=== PATIENT | male | born 1970 | race Caucasian/White ===

== ENCOUNTER 2020-07-30 12:18 | Emergency (ER) | payer MEDICAID, OTHER ==
[~2020-07-30] VITALS: Ht 170.2 cm; Wt 77.6 kg
[~2020-07-30 12:18] MED LIST: no meds
[2020-07-30 12:25] VITALS: BP_SYST 117
[2020-07-30 13:44] VITALS: BP_SYST 119
== END 2020-07-30 13:44 | disposition home or self-care (01) ==
LOC: SED 12:18
DX: S22.008A Other fracture of unspecified thoracic vertebra, initial encounter for closed fracture (principal); Z88.0 Allergy status to penicillin; Z88.2 Allergy status to sulfonamides; W10.8XXA Fall (on) (from) other stairs and steps, initial encounter; Y93.89 Activity, other specified; Y92.89 Other specified places as the place of occurrence of the external cause; Y99.8 Other external cause status
CPT/HCPCS: 72072-TC; 99283